=== PATIENT | female | born 1945 | race Caucasian/White ===

== ENCOUNTER 2021-04-04 06:05 | Day surgery (SDC) | payer MEDICARE, MEDICAID ==
[2021-04-04] MEDS ORDERED: KETOROLAC 0.45% OPHTH DROPS ONE (06:12)
[2021-04-04] MEDS ORDERED: PROPARACAINE 0.5% OPHTH DROPS 15 ML ONE (06:12)
[2021-04-04] MEDS ORDERED: PHENYLEPHRINE 2.5% OPHTH 2 ML DROPS ONE (06:13)
[2021-04-04] MEDS ORDERED: CYCLOPENTOLATE 1% OPHTH DROPS 2 ML ONE (06:13)
[2021-04-04] MEDS ORDERED: LACTATED RINGERS 1,000 ML IV ONE (06:30)
[2021-04-04 06:34] VITALS: BP 129/61
[2021-04-04] MEDS ORDERED: EPINEPHrine 1 MG/ML AMP ONE (07:08)
[2021-04-04] MEDS ORDERED: fentaNYL 100 MCG/2 ML VIAL ONE (07:08)
[2021-04-04] MEDS ORDERED: MIDAZOLAM 2 MG/2 ML VIAL ONE (07:08)
[2021-04-04] MEDS ORDERED: TRIAMCIN/MOXIFLOX OPHTHALMIC 0.6 ML VIAL IO ONE (07:08)
[2021-04-04] MEDS ORDERED: TIMOLOL 0.5% OPHTH DROPS ONE (07:09)
[2021-04-04] MEDS ORDERED: BRIMONIDINE 0.2% OPHTH DROPS 5 ML ONE (07:09)
[2021-04-04] MEDS ORDERED: VANCOMYCIN OPHTHALMI 8MG/0.8ML 8 MG/0.8 ML SYRINGE IO ONE (07:09)
[2021-04-04] MEDS ORDERED: BSS/LIDOCAINE/EPINEPHRINE 1 ML SYRINGE ONE (07:09)
--- NOTE | 2021-04-04 07:44 | CONSULTATION NOTE ---
Consultation Report: In for pre-op evaluation for cataract extraction. HR noted in low 30's with what appears as 2nd degree type 2 HB. Pt is asymptomatic and denies any history of SOB, passing out, dizziness other than a remote incident with covid vaccine. States she felt dizzy for a few days post injection. EKG confirms that patient is in 2nd degree type 2 block. EKG evaluated by internal medicine, confirms. Cardiology will be notified of patient status this AM. Case to be cancelled/delayed given its elective nature. This was explained to patient by anesthesia as well as surgeon.
--- NOTE | 2021-04-04 07:50 | CONSULTATION NOTE ---
Consultation Report: In to see pt for pre-op evaluation for cataract extraction. HR noted to be in low 30's, asymptomatic. Denies any hx of fainting or passing out. Remote hx of dizziness post covid vaccine injection. EKG confirms 2nd degree type 2 HB. Internal medicine also concurs. Case to be delayed given its elective nature. Cardiology will be notified this AM by internal medicine.
== END 2021-04-04 06:06 | disposition home or self-care (01) ==
LOC: SDS 06:05
PROVIDERS: ATTEND Ophthalmology
DX: Z53.9 Procedure and treatment not carried out, unspecified reason (principal)
CPT/HCPCS: 93005

== ENCOUNTER 2021-04-04 08:02 | Emergency (ER) | payer MEDICARE, MEDICAID ==
--- NOTE | 2021-04-04 08:16 | ED Physician Documentation ---
PD HPI CHEST PAIN - Stated complaint Stated Complaint: CARDIAC - History obtained from History obtained from: Patient - Additional information Additional information: 76-year-old woman with no cardiac history went for elective cataract repair today and was noted to be bradycardic with an EKG showing a 2-1 block. She has not had chest pain, dizziness, syncope, exercise intolerance. States her last EKG was several years ago. 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: Hysterectomy - Present Medications Home Medications: Ambulatory Orders Medication Instructions Recorded Confirmed Acyclovir 1 tab PO DAILY 04/04/21 04/04/21 Doxepin [SINEquan] 1 tab PO DAILY 04/04/21 04/04/21 Mirabegron [Myrbetriq] 1 tab PO DAILY 04/04/21 04/04/21 Montelukast [Singulair] 1 tab PO DAILY 04/04/21 04/04/21 Omeprazole [PriLOSEC] 1 tab PO DAILY 04/04/21 04/04/21 Simvastatin [Zocor] 1 tab PO DAILY 04/04/21 04/04/21 amLODIPine [Norvasc] 1 tab PO DAILY 04/04/21 04/04/21 - Allergies Allergies/Adverse Reactions: Allergies Allergy/AdvReac Type Severity Reaction Status Date / Time No Known Drug Allergies Allergy Verified 04/04/21 08:16 PD ED PE NORMAL - Vitals Vital signs reviewed: Yes - General General: Alert and oriented X 3, No acute distress - HEENT HEENT: PERRL, EOMI - Neck Neck: Supple, no meningeal sign, No bony TTP - Cardiac Cardiac: RRR, No murmur - Respiratory Respiratory: No respiratory distress, Clear bilaterally - Abdomen Abdomen: Non tender - Back Back: No CVA TTP, No spinal TTP - Derm Derm: Normal color, Warm and dry - Neuro Neuro: Alert and oriented X 3, Normal speech Results - Vitals Vitals: Vital Signs - 24 hr 04/04/21 04/04/21 04/04/21 08:11 08:30 09:00 Temperature 36.0 C L Heart Rate 36 L 33 L 33 L Respiratory 14 17 16 Rate Blood Pressure 138/51 H 133/58 H 120/63 O2 Saturation 99 98 97 04/04/21 09:30 Temperature 36.6 C Heart Rate 48 L Respiratory 17 Rate Blood Pressure 138/59 H O2 Saturation 97 Oxygen O2 Source Room air - EKG (time done) 0806 Rate: Rate (enter#) (34) Rhythm: NSR (with 2:1 AV block) Intervals: RBBB Ischemia: Normal ST segments. 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 Rincon at the [facility] who felt that no specific inpatient treatment was needed but does need to follow-up within a week or so. I also updated Dr. Lozada, her primary care physician by phone who agrees with the plan and will close the loop as well. Departure - Departure Disposition: 01 Home, Self Care Clinical Impression: Heart block AV second degree Condition: Good Record reviewed to determine appropriate education?: Yes Instructions: Heart Block 2nd Degree Comments: You were seen today for bradycardia, or slow heart rate related to a 2: 1 atrioventricular block. It is unclear how long this has been going on but ob viously is relatively asymptomatic. We discussed your case by phone with Dr. Rincon who is a engineering drafter in [place]. He recommended that she follow-up with Dr. Willis within the week for evaluation. She is a specialist in the electrical conduction system of the heart. Her contact information is: Viri Willis M.D. Electrophysiology [facility] [address] [place] [phone] Call today for an appointment within the week, again mention that Dr. Rincon was involved in your case and want you seen within the week.
[2021-04-04 09:21] LABS: CALCIUM 9.4 mg/dL (8.5-10.3); CREATININE 0.9 mg/dL (0.4-1.0); MAGNESIUM 2.2 mg/dL (1.7-2.8); POTASSIUM 3.8 mmol/L (3.5-5.0)
[2021-04-04 09:39] VITALS: BP 138/59
== END 2021-04-04 09:47 | disposition home or self-care (01) ==
LOC: ED 08:02
DX: I44.1 Atrioventricular block, second degree (principal); I10 Essential (primary) hypertension
CPT/HCPCS: 36415; 80048; 83735; 84443; 93005; 99283; 99284; A9270; J3490; J7120

== ENCOUNTER 2021-08-15 08:51 | Day surgery (SDC) | payer MEDICARE, MEDICAID ==
[~2021-08-15 08:51] MED LIST: BRIMONIDINE 0.2% OPHTH DROPS 5 ML ONE; BSS/LIDOCAINE/EPINEPHRINE 1 ML SYRINGE ONE; CYCLOPENTOLATE 1% OPHTH DROPS 2 ML ONE; EPINEPHrine 1 MG/ML AMP ONE; KETOROLAC 0.45% OPHTH DROPS ONE; PHENYLEPHRINE 2.5% OPHTH 2 ML DROPS ONE; PROPARACAINE 0.5% OPHTH DROPS 15 ML ONE; TIMOLOL 0.5% OPHTH DROPS ONE; TRIAMCIN/MOXIFLOX OPHTHALMIC 0.6 ML VIAL IO ONE; VANCOMYCIN OPHTHALMI 8MG/0.8ML 8 MG/0.8 ML SYRINGE IO ONE
[2021-08-15] MEDS ORDERED: LACTATED RINGERS 1,000 ML IV ONE ×2 (09:08→10:38)
--- NOTE | 2021-08-15 09:57 | ANESTHESIA ---
Pre-Anesthesia VS, & Labs - Diagnosis right senile combined cataract - Procedure right cataract extraction with intraocular lens Vital Signs: Temp Pulse Resp BP Pulse Ox 36.6 C 80 16 145/91 H 96 08/15/21 09:08 08/15/21 09:08 08/15/21 09:08 08/15/21 09:08 08/15/21 09:08 Height: 5 ft 6 in Weight (kg): 83.6 kg Body Mass Index: 29.7 BMI Classification: Overweight - NPO >8 hours - Is Patient ?: No Home Medications and Allergies Acyclovir 1 tab PO DAILY 04/04/21 Doxepin [SINEquan] 1 tab PO DAILY 04/04/21 Mirabegron [Myrbetriq] 1 tab PO DAILY 04/04/21 Montelukast [Singulair] 1 tab PO DAILY 04/04/21 Omeprazole [PriLOSEC] 1 tab PO DAILY 04/04/21 Simvastatin [Zocor] 1 tab PO DAILY 04/04/21 amLODIPine [Norvasc] 1 tab PO DAILY 04/04/21 Allergies/Adverse Reactions: Allergies Allergy/AdvReac Type Severity Reaction Status Date / Time cimetidine [From Tagamet] Allergy Rash Verified 08/15/21 09:28 Penicillins Allergy Rash Verified 08/15/21 09:27 Anes History & Medical History - Anesthetic History Anesthesia Complications: reports: No previous complications - Medical History Cardiovascular: reports: Hypertension, High cholesterol, Arrhythmia (2nd degree HB, underwent pacer a month ago) Pulmonary: reports: None Gastrointestinal: reports: Other Urinary: reports: None Musculoskeletal: reports: None Endocrine/Autoimmune: reports: None Skin: reports: None History of Cancer?: Yes (skin Ca on leg) - Surgical History General: reports: Appendectomy Cardiothoracic: reports: Pacemaker Gynecologic: reports: Hysterectomy Exam General: Alert Dental: WNL Mouth Openin Fingerbreadth Neck Mobility: Normal Mallampati classification: II Respiratory: Lungs clear Cardiovascular: Regular rate Plan Anesthesia Type: MAC Consent for Procedure(s) Verified and Reviewed: Yes Code Status: Attempt Resuscitation ASA classification: 2-Mild systemic disease Is this case an emergency?: No
[2021-08-15] MEDS ORDERED: fentaNYL 100 MCG/2 ML VIAL ONE (10:00)
[2021-08-15] MEDS ORDERED: MIDAZOLAM 2 MG/2 ML VIAL ONE (10:00)
[2021-08-15] MEDS ORDERED: TRIAMCIN/MOXIFLOX OPHTHALMIC 0.6 ML VIAL IO ONE ×2 (10:21→10:23)
[2021-08-15] MEDS ORDERED: BRIMONIDINE 0.2% OPHTH DROPS 5 ML OPTH ONE (10:22)
[2021-08-15] MEDS ORDERED: EPINEPHrine 1 MG/ML AMP IR ONE (10:22)
[2021-08-15] MEDS ORDERED: PROPARACAINE 0.5% OPHTH DROPS 15 ML EACHEYE ONE (10:23)
[2021-08-15] MEDS ORDERED: BSS/LIDOCAINE/EPINEPHRINE 1 ML SYRINGE IO ONE (10:23)
[2021-08-15] MEDS ORDERED: VANCOMYCIN OPHTHALMI 8MG/0.8ML 8 MG/0.8 ML SYRINGE IO ONE (10:23)
[2021-08-15] MEDS ORDERED: TIMOLOL 0.5% OPHTH DROPS OPTH ONE (10:23)
--- NOTE | 2021-08-15 10:44 | OPERATIVE REPORT ---
Operative Report - Other Other Information/Narrative: Date of Surgery: 08/15/21 Preop Dx: Visually significant cataract right eye. This was the first cataract surgery. Postop Dx: Same Procedure: Phacoemulsification with posterior chamber intraocular lens implant right eye Surgeon: Dr. Hermilo Lerner Anesthesia: Monitored anesthesia care Complications: None Operative Indications: This is a 76-year-old F with progressive vision loss in the right eye due to 4+ nuclear sclerotic and 2+ posterior subcapsular cataract. Best corrected visual acuity was 20/60 with glare to hand motion vision in the right eye. Indications for surgery were: - Overall decrease in vision - Difficulty seeing words on a computer screen - Difficulty reading - Difficulty seeing words, closed captions, or game scores on TV - Difficulty seeing street signs The patient was consented at length concerning the risks and benefits of cataract surgery after which the patient expressed a desire to proceed with surgery. Operative Procedure: The patient was taken into OR#3 and placed under monitored anesthesia care. A surgical time-out was conducted confirming correct patient, correct procedure, and correct surgical site. The patient was given topical anesthesia and then prepped and draped in the usual sterile fashion. The eye was entered at the 6 and 3 oclock positions. Intracameral Shugarcaine was injected into the anterior chamber followed by a dispersive viscoelastic. A continuous-tear curvilinear capsulorhexis was performed. The nucleus was hydrodissected and phacoemulsified. The cortex was evacuated using automated infusion and aspiration. A cohesive viscoelastic was injected into the capsular bag and a 22.5 diopter intraocular lens was inserted into the bag. Infusion and aspiration were used to evacuate the viscoelastic materials from the eye. The wounds were hydrated and the eye inflated to physiologic pressure using balanced salt solution. Approximately 0.25ml of a mixture of triamcinolone and moxifloxacin was injected trans-sclerally into the vitreous in the inferotemporal quadrant using a 30 gauge cannula. An additional 0.55ml of a mixture of triamcinolone, moxifloxacin, and vancomycin was injected subconjunctivally in the superior quadrant for infection and inflammation prophylaxis. Wound integrity was checked with Weck-Mei sponges. The patient was taken from the operating room in good condition and given post-op instructions.
--- NOTE | 2021-08-15 10:45 | ANESTHESIA POST OP EVALUATION ---
Anesthesia Post Eval - Post Anesthesia Eval Vitals: Last Vital Signs Temp 36.8 C 08/15/21 10:38 Pulse 68 08/15/21 10:38 Resp 14 08/15/21 10:38 BP 111/53 L 08/15/21 10:38 Pulse Ox 95 08/15/21 10:38 CV Function Including HR & BP: Stable Pain Control: Satisfactory Nausea & Vomiting: Negative Mental Status: Baseline Respiratory Status: Airway Patent Hydration Status: Satisfactory Anesthesia Complications: None
[2021-08-15 10:47] VITALS: BP 101/48
== END 2021-08-15 08:52 | disposition home or self-care (01) ==
LOC: SDS 08:51
PROVIDERS: ATTEND Ophthalmology
DX: H25.811 Combined forms of age-related cataract, right eye (principal); I10 Essential (primary) hypertension; E78.00 Pure hypercholesterolemia, unspecified; J45.909 Unspecified asthma, uncomplicated; F41.9 Anxiety disorder, unspecified; F32.9 Major depressive disorder, single episode, unspecified; Z95.0 Presence of cardiac pacemaker; Z79.899 Other long term (current) drug therapy
CPT/HCPCS: 66984; A9270; J3490; J7120

== ENCOUNTER 2021-11-07 08:01 | Day surgery (SDC) | payer MEDICARE, MEDICAID ==
[~2021-11-07 08:01] MED LIST changes: -BRIMONIDINE 0.2% OPHTH DROPS 5 ML ONE; -BSS/LIDOCAINE/EPINEPHRINE 1 ML SYRINGE ONE; -EPINEPHrine 1 MG/ML AMP ONE; -TIMOLOL 0.5% OPHTH DROPS ONE; -TRIAMCIN/MOXIFLOX OPHTHALMIC 0.6 ML VIAL IO ONE; -VANCOMYCIN OPHTHALMI 8MG/0.8ML 8 MG/0.8 ML SYRINGE IO ONE
--- NOTE | 2021-11-07 09:16 | ANESTHESIA ---
Pre-Anesthesia VS, & Labs - Diagnosis L senile combined cataract - Procedure L extraction cataract w/IOL Vital Signs: Temp Pulse Resp BP Pulse Ox 36.9 C 76 19 145/99 H 96 11/07/21 08:08 11/07/21 08:08 11/07/21 08:08 11/07/21 08:08 11/07/21 08:08 Height: 5 ft 6 in Weight (kg): 80.9 kg Body Mass Index: 28.8 BMI Classification: Overweight - NPO >8 hours - Is Patient ?: No - Lab Results Lab results reviewed: Yes Home Medications and Allergies Home Medications: Ambulatory Orders Alprazolam [Xanax] 0.25 mg PO BID 11/06/21 Brexpiprazole [Rexulti] 4 mg PO DAILY 11/06/21 Prazosin [Minipress] 4 mg PO BID 11/06/21 buPROPion [Wellbutrin Sr] 150 mg PO BID 11/06/21 Acyclovir 1 tab PO DAILY 04/04/21 Doxepin [SINEquan] 1 tab PO DAILY 04/04/21 Mirabegron [Myrbetriq] 1 tab PO DAILY 04/04/21 Montelukast [Singulair] 1 tab PO DAILY 04/04/21 Omeprazole [PriLOSEC] 1 tab PO DAILY 04/04/21 Simvastatin [Zocor] 1 tab PO DAILY 04/04/21 amLODIPine [Norvasc] 1 tab PO DAILY 04/04/21 Alprazolam [Xanax] 0.25 mg PO BID 11/06/21 Brexpiprazole [Rexulti] 4 mg PO DAILY 11/06/21 Prazosin [Minipress] 4 mg PO BID 11/06/21 buPROPion [Wellbutrin Sr] 150 mg PO BID 11/06/21 Allergies/Adverse Reactions: Allergies Allergy/AdvReac Type Severity Reaction Status Date / Time c[facility]idine [[facility]] Allergy Rash Verified 08/15/21 09:28 Penicillins Allergy Rash Verified 08/15/21 09:27 Anes History & Medical History - Anesthetic History Anesthesia Complications: reports: No previous complications Family history of Anesthesia Complications: Denies Family history of Malignant Hyperthermia: Denies - Medical History Cardiovascular: reports: Hypertension, High cholesterol, Arrhythmia, Other (pacer for 2nd degree type 2 block) Pulmonary: reports: None Gastrointestinal: reports: Other Urinary: reports: None Musculoskeletal: reports: None Endocrine/Autoimmune: reports: None Skin: reports: None - Surgical History General: reports: Appendectomy Eyes Ears Nose Throat (EENT): reports: Cataracts Cardiothoracic: reports: Pacemaker Gynecologic: reports: Hysterectomy Exam General: Alert, Oriented x3, Cooperative Dental: WNL Mouth Openin Fingerbreadth Neck Mobility: Normal Mallampati classification: II Respiratory: Lungs clear, Normal breath sounds, No respiratory distress Neurological: Normal speech Mental/Cognitive Status: Alert/Oriented X3, Normal for patient Cognitive Status: Within normal limits Plan Anesthesia Type: MAC Consent for Procedure(s) Verified and Reviewed: Yes Code Status: Attempt Resuscitation ASA classification: 3-Severe systemic disease Is this case an emergency?: No
[2021-11-07] MEDS ORDERED: MIDAZOLAM 2 MG/2 ML VIAL ONE ×2 (09:33→09:54)
[2021-11-07] MEDS ORDERED: TIMOLOL 0.5% OPHTH DROPS OPTH ONE (09:57)
[2021-11-07] MEDS ORDERED: EPINEPHrine 1 MG/ML AMP IR ONE (09:57)
[2021-11-07] MEDS ORDERED: BRIMONIDINE 0.2% OPHTH DROPS 5 ML OPTH ONE (09:57)
[2021-11-07] MEDS ORDERED: BSS/LIDOCAINE/EPINEPHRINE 1 ML SYRINGE IO ONE (09:57)
[2021-11-07] MEDS ORDERED: VANCOMYCIN OPHTHALMI 8MG/0.8ML 8 MG/0.8 ML SYRINGE IO ONE (09:58)
[2021-11-07] MEDS ORDERED: PROPARACAINE 0.5% OPHTH DROPS 15 ML EACHEYE ONE (09:58)
[2021-11-07] MEDS ORDERED: TRIAMCIN/MOXIFLOX OPHTHALMIC 0.6 ML VIAL IO ONE ×2 (09:58→13:40)
[2021-11-07] MEDS ORDERED: LACTATED RINGERS 1,000 ML IV ONE ×2 (10:14)
[2021-11-07 10:34] VITALS: BP 149/63
--- NOTE | 2021-11-07 11:22 | OPERATIVE REPORT ---
Operative Report - Other Other Information/Narrative: Date of Surgery: 11/07/21 Preop Dx: Visually significant cataract left eye. Cataract surgery was performed in the right eye on . Postop Dx: Same Procedure: Phacoemulsification with posterior chamber intraocular lens implant left eye Surgeon: Dr. Hermilo Lerner Anesthesia: Monitored anesthesia care Complications: None Operative Indications: This is a 76-year-old F with progressive vision loss in the left eye due to 3-4+ nuclear sclerotic and 1+ posterior subcapsular cataract. Best corrected visual acuity was 20/25 with glare to hand motion vision in the left eye. Indications for surgery were: - Overall decrease in vision - Difficulty reading - Difficulty seeing words, closed captions, or game scores on TV - Difficulty with glare or bright lights in any situation The patient was consented at length concerning the risks and benefits of cataract surgery after which the patient expressed a desire to proceed with surgery. Operative Procedure: The patient was taken into OR#3 and placed under monitored anesthesia care. A surgical time-out was conducted confirming correct patient, correct procedure, and correct surgical site. The patient was given topical anesthesia and then prepped and draped in the usual sterile fashion. The eye was entered at the 6 and 3 oclock positions. Intracameral Shugarcaine was injected into the anterior chamber followed by a dispersive viscoelastic. A continuous-tear curvilinear capsulorhexis was performed. The nucleus was hydrodissected and phacoemulsified. The cortex was evacuated using automated infusion and aspiration. A cohesive viscoelastic was injected into the capsular bag and a 21.0 diopter intraocular lens was inserted into the bag. Infusion and aspiration were used to evacuate the viscoelastic materials from the eye. The wounds were hydrated and the eye inflated to physiologic pressure using balanced salt solution. Approximately 0.25ml of a mixture of triamcinolone and moxifloxacin was injected trans-sclerally into the vitreous in the inferotemporal quadrant using a 30 gauge cannula. An additional 0.55ml of a mixture of triamcinolone, moxifloxacin, and vancomycin was injected subconjunctivally in the superior quadrant for infection and inflammation prophylaxis. Wound integrity was checked with Weck-Mei sponges. The patient was taken from the operating room in good condition and given post-op instructions.
--- NOTE | 2021-11-07 11:40 | ANESTHESIA POST OP EVALUATION ---
Anesthesia Post Eval - Post Anesthesia Eval Vitals: Last Vital Signs Temp 36.7 C 11/07/21 10:32 Pulse 72 11/07/21 10:32 Resp 12 11/07/21 10:32 BP 149/63 H 11/07/21 10:32 Pulse Ox 98 11/07/21 10:32 CV Function Including HR & BP: Stable Pain Control: Satisfactory Nausea & Vomiting: Negative Mental Status: Baseline Respiratory Status: Airway Patent Hydration Status: Satisfactory Anesthesia Complications: None
[2021-11-07] MEDS ORDERED: TIMOLOL 0.5% OPHTH DROPS ONE (13:40)
[2021-11-07] MEDS ORDERED: BRIMONIDINE 0.2% OPHTH DROPS 5 ML ONE (13:40)
[2021-11-07] MEDS ORDERED: BSS/LIDOCAINE/EPINEPHRINE 1 ML VIAL ONE (13:40)
== END 2021-11-07 08:02 | disposition home or self-care (01) ==
LOC: SDS 08:01
PROVIDERS: ATTEND Ophthalmology
DX: H25.812 Combined forms of age-related cataract, left eye (principal); I49.9 Cardiac arrhythmia, unspecified; Z98.41 Cataract extraction status, right eye; Z95.0 Presence of cardiac pacemaker
CPT/HCPCS: 66984; A9270; J3490; J7120

== ENCOUNTER 2022-02-05 05:37 | Emergency (ER) | payer MEDICARE, MEDICAID ==
[2022-02-05] MEDS ORDERED: MECLIZINE 12.5 MG TABLET PO STA (06:28)
[2022-02-05 06:38] LABS: BASOPHILS % (AUTO) 0.6 %; EOSINOPHILS # (AUTO) 0.2 10^3/uL (0.0-0.7); EOSINOPHILS % (AUTO) 2.6 %; HCT - HEMATOCRIT 38.4 % (37.0-47.0); HGB - HEMOGLOBIN 12.7 g/dL (12.0-16.0); LYMPHOCYTES # (AUTO) 2.4 10^3/uL (1.5-3.5); LYMPHOCYTES % (AUTO) 38.7 %; MEAN CORPUSCULAR HEMOGLOBIN 29.7 pg (27.0-31.0); MEAN CORPUSCULAR HGB CONC 33.1 g/dL (32.0-36.0); MEAN CORPUSCULAR VOLUME 89.7 fL (81.0-99.0); MEAN PLATELET VOLUME 10.2 fL (7.9-10.8); MONOCYTES # (AUTO) 0.6 10^3/uL (0.0-1.0); MONOCYTES % (AUTO) 10.3 %; NEUTROPHILS % (AUTO) 47.5 %; PLT - PLATELET COUNT 219 10^3/uL (130-450); RED BLOOD COUNT 4.28 10^6/uL (4.20-5.40); RED CELL DISTRIBUTION WIDTH 12.8 % (12.0-15.0); WHITE BLOOD COUNT 6.2 x10^3/uL (4.8-10.8)
[2022-02-05 06:44] LABS: ALBUMIN 3.7 g/dL (3.2-5.5); ALBUMIN/GLOBULIN RATIO 1.1 (1.0-2.2); BILIRUBIN,TOTAL 0.4 mg/dL (0.2-1.0); CALCIUM 8.9 mg/dL (8.5-10.3); CREATININE 0.7 mg/dL (0.4-1.0); POTASSIUM 3.5 mmol/L (3.5-5.0); TOTAL PROTEIN 7.1 g/dL (6.7-8.2)
[2022-02-05 07:22] LABS: BILIRUBIN,URINE NEGATIVE (NEGATIVE); GLUCOSE, URINE (UA) >=1000 mg/dL (NEGATIVE); KETONES,URINE (UA) 15 mg/dL (NEGATIVE); LEUKOCYTE ESTERASE, URINE NEGATIVE (NEGATIVE); NITRITE,URINE NEGATIVE (NEGATIVE); OCCULT BLOOD,URINE NEGATIVE (NEGATIVE); PROTEIN,URINE NEGATIVE (NEGATIVE); UROBILINOGEN,URINE 0.2 (NORMAL) E.U./dL (NORMAL)
[2022-02-05 07:26] LABS: CLARITY,URINE CLEAR (CLEAR)
--- NOTE | 2022-02-05 07:27 | CT Report ---
PROCEDURE: HEAD WO INDICATIONS: head injury, dizziness TECHNIQUE: Noncontrast 4.5 mm thick angled axial sections acquired from the foramen magnum to the vertex. For r adiation dose reduction, the following was used: automated exposure control, adjustment of mA and/or kV according to patient size. COMPARISON: None FINDINGS: Image quality: Excellent. CSF spaces: Basal cisterns are patent. No extra-axial fluid collections. The ventricles are symmet cintia in size and shape. Brain: No intracranial bleeds or masses. There is cerebral volume loss for age, with resultant vent ricular and sulcal prominence. There are periventricular and deep white matter chronic small vessel ischemic changes. There is intracranial internal carotid artery atherosclerosis. Skull and face: Calvarium and visualized facial bones appear intact, without suspicious lesions. Sinuses: Visualized sinuses and mastoids are clear. IMPRESSION: No acute intracranial disease process. Reviewed by: Jessica Del Valle MD, PhD on 02/05/2022 7:25 AM PDT Approved by: Jessica Del Valle MD, PhD on 02/05/2022 7:25 AM PDT Station ID: [id number]
--- NOTE | 2022-02-05 07:36 | ED Physician Documentation ---
History of Present Illness - Stated complaint Stated Complaint: DIZZINESS/GLF -4 DAYS - Chief complaint Chief Complaint: General - History obtained from History obtained from: Patient - History of Present Illness Timing: How many days ago (4) Pain level max: 0 Pain level now: 0 Improved by: lying still Worsened by: some component of worsening of dizziness with movement of head (but not reliably , and some episodes of dizziness occur even at rest) - Additonal information Additional information: patient fell 4 days ago at home, lost her balance and fell forward , struck her head against a sink. She denies LOC, denies KULKARNI. She has had episodic dizziness since the injury, with episodes often triggered by moving her head/turning head, although some episodes occur when lying still. Episodes last a few seconds up to 2-3 minutes. Patient is not on any blood-thinning medications Review of Systems Constitutional: reports: Reviewed and negative Eyes: reports: Reviewed and negative Ears: reports: Reviewed and negative Cardiac: reports: Reviewed and negative Respiratory: reports: Reviewed and negative GI: reports: Reviewed and negative Musculoskeletal: reports: Reviewed and negative Neurologic: reports: Head injury. 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: Hysterectomy Cardiovascular: Pacemaker HEENT: Cataracts - Present Medications Home Medications: Ambulatory Orders Medication Instructions Recorded Confirmed Acyclovir 1 tab PO DAILY 04/04/21 02/05/22 Doxepin [SINEquan] 1 tab PO DAILY 04/04/21 02/05/22 Mirabegron [Myrbetriq] 1 tab PO DAILY 04/04/21 02/05/22 Montelukast [Singulair] 1 tab PO DAILY 04/04/21 02/05/22 Omeprazole [PriLOSEC] 1 tab PO DAILY 04/04/21 02/05/22 Simvastatin [Zocor] 1 tab PO DAILY 04/04/21 02/05/22 amLODIPine [Norvasc] 5 mg PO DAILY 04/04/21 02/05/22 Alprazolam [Xanax] 0.25 mg PO BID 11/06/21 02/05/22 Prazosin [Minipress] 5 mg PO BID 11/06/21 02/05/22 buPROPion [Wellbutrin Sr] 150 mg PO DAILY 11/06/21 02/05/22 OLANZapine [Zyprexa] 5 mg PO DAILY 02/05/22 02/05/22 - Allergies Allergies/Adverse Reactions: Allergies Allergy/AdvReac Type Severity Reaction Status Date / Time cimetidine [From Tagamet] Allergy Rash Verified 02/05/22 06:01 Penicillins Allergy Rash Verified 02/05/22 06:01 - Social History Does the pt smoke?: No Smoking Status: Never smoker Does the pt drink ETOH?: No Does the pt have substance abuse?: No - Immunizations Immunizations are current?: No Immunizations: TDAP >10years/unknown - POLST Patient has POLST: No PD ED PE NORMAL - Vitals Vital signs reviewed: Yes - General General: Alert and oriented X 3, No acute distress, Well developed/nourished - HEENT HEENT: Atraumatic, PERRL, EOMI, Moist mucous membranes - Neck Neck: No bony TTP - Cardiac Cardiac: RRR, No murmur - Respiratory Respiratory: No respiratory distress, Clear bilaterally - Abdomen Abdomen: Soft, Non tender - Derm Derm: Normal color, Warm and dry - Extremities Extremities: No edema - Neuro Neuro: Alert and oriented X 3, drywall taper 2-12 intact, No motor deficit, No sensory deficit, Normal speech Eye Opening: Spontaneous Motor: Obeys Commands Verbal: Oriented GCS Score: 15 Results - Vitals Vitals: Vital Signs - 24 hr 02/05/22 02/05/22 02/05/22 05:56 07:15 09:00 Temperature 36.0 C L Heart Rate 82 66 71 Respiratory 17 18 14 Rate Blood Pressure 133/83 H 151/64 H 129/65 O2 Saturation 95 97 100 Oxygen O2 Source Room air - EKG (time done) No standard instances Rate: Rate (enter#) (70) Rhythm: NSR [place]: LAD Intervals: Normal CT QRS: Normal Ischemia: Normal ST segments - Labs Labs: Laboratory Tests 02/05/22 02/05/22 02/05/22 06:20 06:20 06:20 WBC 6.2 RBC 4.28 Hgb 12.7 Hct 38.4 MCV 89.7 MCH 29.7 MCHC 33.1 RDW 12.8 Plt Count 219 MPV 10.2 Neut # (Auto) 3.0 Lymph # (Auto) 2.4 [place] # (Auto) 0.6 Eos # (Auto) 0.2 Baso # (Auto) 0.0 Absolute Nucleated RBC 0.00 Nucleated RBC % 0.0 Sodium 138 Potassium 3.5 Chloride 105 Carbon Dioxide 23 Anion Gap 10.0 BUN 10 Creatinine 0.7 Estimated GFR (MDRD) 81 L Glucose 351 H POC Whole Bld Glucose Calcium 8.9 Total Bilirubin 0.4 AST 31 ALT 24 Alkaline Phosphatase 157 H Troponin I High Sens 4.8 Total Protein 7.1 Albumin 3.7 Globulin 3.4 Albumin/Globulin Ratio 1.1 Lipase 32 Urine Color Urine Clarity Urine pH Ur Specific [place] Urine Protein Urine Glucose (UA) Urine Ketones Urine Occult Blood Urine Nitrite Urine Bilirubin Urine Urobilinogen Ur Leukocyte Esterase Ur Microscopic Review Urine Culture Comments Serum Ketones 02/05/22 02/05/22 02/05/22 06:20 07:16 09:15 WBC RBC Hgb Hct MCV MCH MCHC RDW Plt Count MPV Neut # (Auto) Lymph # (Auto) [place] # (Auto) Eos # (Auto) Baso # (Auto) Absolute Nucleated RBC Nucleated RBC % Sodium Potassium Chloride Carbon Dioxide Anion Gap BUN Creatinine Estimated GFR (MDRD) Glucose POC Whole Bld Glucose 317 H Calcium Total Bilirubin AST ALT Alkaline Phosphatase Troponin I High Sens Total Protein Albumin Globulin Albumin/Globulin Ratio Lipase Urine Color YELLOW Urine Clarity CLEAR Urine pH 6.0 Ur Specific [place] 1.025 Urine Protein NEGATIVE Urine Glucose (UA) >=1000 H Urine Ketones 15 H Urine Occult Blood NEGATIVE Urine Nitrite NEGATIVE Urine Bilirubin NEGATIVE Urine Urobilinogen 0.2 (NORMAL) Ur Leukocyte Esterase NEGATIVE Ur Microscopic Review NOT INDICATED Urine Culture Comments NOT INDICATED Serum Ketones NEGATIVE - Rads (name of study) CTH Radiology: Prelim report reviewed, See rad report cxr Radiology: Prelim report reviewed, See rad report PD MEDICAL DECISION MAKING - ED course Complexity details: reviewed results, re-evaluated patient, considered differential, d/w patient ED course: presents with episodic dizziness since head injury 4 days ago. No concerning findings on CTH, CXR. Blood tests are reassuring except hyperglycemia noted; patient says she is not diabetic, has never had DM diagnosis. There is only one previous serum glucose on [facility] records (162 in March 2021). She is given meclizine in ED and reports some improvement with the dizziness. Care of patient turned over to Dr. Hidalgo at end of my shift pending infusion of 1 liter NS and serum ketone check. Hgb A1C also ordered.
[2022-02-05] MEDS ORDERED: SODIUM CHLORIDE 0.9% 1,000 ML IV STA (07:52)
--- NOTE | 2022-02-05 09:07 | XRAY Report ---
PROCEDURE: Chest 2 View X-Ray INDICATIONS: near-syncope TECHNIQUE: 2 view(s) of the chest. COMPARISON: None. FINDINGS: Surgical changes and devices: Left chest wall cardiac pacer. Lungs and pleura: No pleural effusions or pneumothorax. Bilateral interstitial prominence. Mediastinum: Mediastinal contours are normal. Heart size is normal. Bones and chest wall: No suspicious bony abnormalities. Soft tissues appear unremarkable. IMPRESSION: Bilateral lung interstitial prominence which should represent chronic lung disease, pulm onary edema or atypical pneumonia. Reviewed by: Jessica Del Valle MD, PhD on 02/05/2022 9:06 AM PDT Approved by: Jessica Del Valle MD, PhD on 02/05/2022 9:06 AM PDT Station ID: [id number]
--- NOTE | 2022-02-05 10:03 | ED Physician Documentation ---
ED Addendum - Addendum Addendum: 02/05/22 11:50 Patient received a signout from off going physician, please see their d ocumentation for further detail. Patient is evaluated independently at bedside. Did report history of recent Episode of near syncope with closed head injury that occurred 4 days ago as well as intermittent episodes of dizziness. Reported that her symptoms were much improved here in the emergency department. Reviewed all of her lab work which did demonstrate a nonspecific hyperglycemia without history of diabetes. She does have an A1c that is pending at this time. She does not appear to be symptomatic from her mild elevation in blood sugar. The remainder of her labs Were within normal limits. I did have a repeat EKG drawn which did demonstrate some improvement in the previously identified T wave inversions in her earlier EKG at 03 02. I asked that her pacer be interrogated here in the emergency department and this was reviewed and there were no arrhythmias or abnormal events appreciated when I discussed it with her pacer team at [facility]. Additionally I consulted on her care with the cardiology team at [facility] who do not believe that her symptoms are cardiac in origin. I did obtain orthostatic vital signs which were within normal limits. She was monitored in the emergency department for several hours and passed an ambulatory trial at that time. At this time I will discharge with a short course of meclizine for use at home as well as with a walker with i nstructions in its use in order to decrease risk for future falls. She was encouraged to follow-up carefully with both her primary care doctor concerning her episodes of dizziness, as well as her elevated blood sugar as well as with her cardiology team. Otherwise clear return precautions and follow-up instructions were given prior to discharge.
[2022-02-05 11:42] LABS: ESTIMATED AVERAGE GLUCOSE 326 mg/dL (70-100)
[2022-02-05 11:46] VITALS: BP 152/65
== END 2022-02-05 11:59 | disposition home or self-care (01) ==
LOC: ED 05:37
DX: S09.90XA Unspecified injury of head, initial encounter (principal); W18.30XA Fall on same level, unspecified, initial encounter; Y92.009 Unspecified place in unspecified non-institutional (private) residence as the place of occurrence of the external cause; I10 Essential (primary) hypertension
CPT/HCPCS: 36415; 70450; 71046; 80053; 81003; 82009; 83036; 83690; 84484; 85025; 93005; 96360; 99284; A9270; 81001; 87086

== ENCOUNTER 2023-02-18 16:35 | Outpatient (CLI) | payer OTHER, MEDICARE | END 2023-02-18 16:36 | disposition EMS.NT | LOC: EMS 16:35 | DX: Z04.1 Encounter for examination and observation following transport accident (principal) ==

== ENCOUNTER 2023-02-24 14:28 | Emergency (ER) | payer MEDICARE ==
--- NOTE | 2023-02-24 15:27 | ED Physician Documentation ---
History of Present Illness - Stated complaint Stated Complaint: HEAD/NECK PX - Chief complaint Chief Complaint: Trauma Hd/Nk - Additonal information Additional information: 78-year-old female presents to the emergency department for evaluation of headache, neck pain and upper shoulder/back pain. She reports that she was standing in her shower when her left leg simply gave out and she fell backwards striking her head on the faucet. There was no loss of consciousness. She is not anticoagulated. She has felt dizzy with a headache since the fall. She does have a history of a pacer in place. She denies any chest pain or shortness of air or any presyncopal symptoms prior to the event. After the fall she states she felt like her heart was racing. Review of Systems Constitutional: denies: Fever, Chills Cardiac: reports: Palpitations. denies: Chest pain / pressure, Pedal edema, Calf pain Respiratory: reports: Reviewed and negative GI: reports: Reviewed and negative : reports: Reviewed and negative Neurologic: reports: Headache. denies: Generalized weakness, Focal weakness, Numbness, Syncope, Seizure, Confused, Head injury, LOC Psychiatric: reports: Reviewed and negative Endocrine: reports: Reviewed and negative PD PAST MEDICAL HISTORY - Past Medical History Cardiovascular: Hypertension, High cholesterol, Arrhythmia, Other Respiratory: None Neuro: None Endocrine/Autoimmune: None GI: Other EXTENSION SPECIALIST: None : None HEENT: None Psych: Depression, Anxiety Musculoskeletal: None Derm: None - Past Surgical History Past Surgical History: Yes General: Appendectomy /EXTENSION SPECIALIST: Hysterectomy Cardiovascular: Pacemaker HEENT: Cataracts - Present Medications Home Medications: Ambulatory Orders Medication Instructions Recorded Confirmed Acyclovir 400 mg PO DAILY 04/04/21 02/24/23 Doxepin [SINEquan] 10 mg PO DAILY 04/04/21 02/24/23 Montelukast [Singulair] 10 mg PO DAILY 04/04/21 02/24/23 Omeprazole [PriLOSEC] 20 mg PO DAILY 04/04/21 02/24/23 Simvastatin [Zocor] 20 mg PO DAILY 04/04/21 02/24/23 amLODIPine [Norvasc] 5 mg PO DAILY 04/04/21 02/24/23 Alprazolam [Xanax] 0.25 mg PO BID 11/06/21 02/24/23 Cariprazine HCl [Vraylar] 1.5 mg ORAL DAILY 02/24/23 02/24/23 Deutetrabenazine [Austedo] 14 mg ORAL BID 02/24/23 02/24/23 Prazosin [Minipress] 5 mg PO BID 02/24/23 02/24/23 traZODone [Desyrel] 100 mg PO HS 02/24/23 02/24/23 - Allergies Allergies/Adverse Reactions: Allergies Allergy/AdvReac Type Severity Reaction Status Date / Time cimetidine [From Tagamet] Allergy Rash Verified 02/24/23 14:51 Penicillins Allergy Rash Verified 02/24/23 14:51 - Social History Does the pt smoke?: No Smoking Status: Never smoker Does the pt drink ETOH?: No Does the pt have substance abuse?: No - Immunizations Immunizations are current?: No Immunizations: TDAP >10years/unknown - POLST Patient has POLST: No PD ED PE NORMAL - General General: Alert and oriented X 3, No acute distress, Well developed/nourished - HEENT HEENT: Atraumatic, EOMI, Ears normal, Other (Negative for raccoon eyes, abraham sign, hemotympanums) - Neck Neck: Supple, no meningeal sign, No adenopathy, Other (No midline cervical spinous tenderness elicited. Full range of motion of the neck in all planes) - Cardiac Cardiac: RRR, No murmur, Strong equal pulses, Other (Paced ECG rhythm.) - Respiratory Respiratory: No respiratory distress, Clear bilaterally - Abdomen Abdomen: Normal bowel sounds, Soft, Non tender, Non distended - Back Back: No CVA TTP - Derm Derm: Normal color, Warm and dry, No rash - Extremities Extremities: No deformity - Neuro Neuro: Alert and oriented X 3, dynamo tender 2-12 intact Eye Opening: Spontaneous Motor: Obeys Commands Verbal: Oriented GCS Score: 15 Results - Vitals Vitals: Vital Signs - 24 hr 02/24/23 14:52 Temperature 36.4 C L Heart Rate 96 Respiratory 20 Rate Blood Pressure 153/58 H O2 Saturation 96 Oxygen O2 Source Room air - EKG (time done) 1523 EKG releavant findings:: EKG personally interpreted by author of this note. Relevant findings are: Rate: Rate (enter#) (78) Rhythm: NSR [place]: Anterior hemiblock Intervals: RBBB QRS: Normal Ischemia: Normal ST segments Compare to prior EKG: Unchanged from prior EKG Computer interpretation: Agree with computer - Labs Labs: Laboratory Tests 02/24/23 02/24/23 02/24/23 15:40 15:40 15:40 WBC 10.2 RBC 4.73 Hgb 14.1 Hct 42.4 MCV 89.6 MCH 29.8 MCHC 33.3 RDW 12.5 Plt Count 212 MPV 10.1 Neut # (Auto) 7.8 H Lymph # (Auto) 1.7 Sharp # (Auto) 0.6 Eos # (Auto) 0.1 Baso # (Auto) 0.0 Absolute Nucleated RBC 0.00 Nucleated RBC % 0.0 Sodium 143 Potassium 3.8 Chloride 107 Carbon Dioxide 24 Anion Gap 12.0 BUN 13 Creatinine 1.0 Estimated GFR (MDRD) 53 L Glucose 164 H Calcium 9.1 Total Bilirubin 0.8 AST 18 ALT 15 Alkaline Phosphatase 105 Troponin I High Sens 4.1 Total Protein 7.5 Albumin 3.9 Globulin 3.6 Albumin/Globulin Ratio 1.1 Lipase 24 - Rads (name of study) cervical CT Relevant Findings:: Final report received (No acute cervical spine fracture or subluxation) CT head Relevant Findings:: Final report received (No acute intracranial abnormality) chest 2v xr Relevant Findings:: EMP independent interpretation of test (No acute cardiopulmonary abnormality) PD Medical Decision Making - ED course Complexity details: reviewed results, re-evaluated patient, d/w patient ED course: 78-year-old female who has a history of diabetes as well as a pacemaker in place presents to the emergency department for evaluation after a fall in the shower today. She states she felt like her left leg gave out on her she fell backwards striking her head on the faucet. There was no loss of consciousness. She is not anticoagulated. She was driven to the emergency department. On presentation she is alert and well-appearing. No focal neurodeficits. She does endorse a headache and some mild upper neck pain and shoulder pain. Patient's pacer was interrogated and in the results there do not appear to have been any triggers, high ventricular rates or other worrisome episodes since it was last evaluated in October 2022. We did obtain a CBC, electrolytes and a troponin which were per my interpretation without acute worrisome findings. Patient does tell us that she was recently diagnosed as being diabetic and was started on Trulicity. She does have a mild hyperglycemia. Today her EKG was without ischemic findings. She does have a paced rhythm. Unchanged from recent EKG. Clinically patient does not appear to have symptoms or history suggesting ACS A CT of the head and cervical spine was without acute traumatic injuries. 2 view chest x-ray was without findings to suggest rib fracture or pneumothorax. I am at this time patient is stable for discharge home. We discussed the usual emergent return precautions for worsening symptoms. Departure - Departure Disposition: Home, Self Care Clinical Impression: Fall in shower, History of pacemaker Headache Qualifiers: Headache type: unspecified Headache chronicity pattern: acute headache Intractability: not intractable Qualified Code(s): R51.9 - Headache, unspecified Condition: Stable Record reviewed to determine appropriate education?: Yes Comments: Sommer was seen today in the emergency department because your leg gave out in the shower and you fell backwards striking her head on the faucet handles. You had reported to us that you felt your heart was racing after the fall. We did interrogate your pacemaker today and found that there were no malfunctions or rapid firings of the pacer. With this means that appears to have been acting normally. Your battery has about 10 years of life left on it. We did do a CT of your head and neck without any findings of trauma or injury seen. Your chest x-ray was also normal. We did check your CBC and electrolytes and those were also without worrisome findings as a cause for your fall today. I do recommend that you take Tylenol 500 mg with food 2-3 times a day or alternate with ibuprofen 600 mg also 2-3 times a day for any body aches and discomfort. Important you discuss this ED visit with your primary care doctor. If you develop any slurred speech, have sudden severe headache, uncontrolled vomiting or any fainting episodes or develop chest pain you should return immediately to the ER for repeat evaluation NIHSS - Time Time: 15:25 - Level of Consciousness Level of consciousness: (0) Alert, Keenly responsive LOC Questions: (0) Answers both Q's correct LOC Commands: (0) Performs both correctly - Gaze Best Gaze: (0) Normal - Visual Visual: (0) No loss - Facial Palsy Facial Palsy: (0) Normal, symmetrical movement - Motor Arms (both separate) Motor Arm (right): (0) No drift Motor Arm (left): (0) No drift - Motor Legs (both separate) Motor Leg (right): (0) No drift Motor Leg (left): (0) No drift - Limb Ataxia Limb Ataxia: (0) Absent - Sensory Sensory: (0) Normal - Best Language Best Language: (0) No aphasia - Dysarthria Dysarthria: (0) Normal - Extinction and Inattention (formally neg Extinction and inattention: (0) No abnormality - Total Score/Results Total Score/Result: 0
[2023-02-24 15:47] LABS: BASOPHILS % (AUTO) 0.3 %; EOSINOPHILS # (AUTO) 0.1 10^3/uL (0.0-0.7); EOSINOPHILS % (AUTO) 0.7 %; HCT - HEMATOCRIT 42.4 % (37.0-47.0); HGB - HEMOGLOBIN 14.1 g/dL (12.0-16.0); LYMPHOCYTES # (AUTO) 1.7 10^3/uL (1.5-3.5); LYMPHOCYTES % (AUTO) 16.6 %; MEAN CORPUSCULAR HEMOGLOBIN 29.8 pg (27.0-31.0); MEAN CORPUSCULAR HGB CONC 33.3 g/dL (32.0-36.0); MEAN CORPUSCULAR VOLUME 89.6 fL (81.0-99.0); MEAN PLATELET VOLUME 10.1 fL (7.9-10.8); MONOCYTES # (AUTO) 0.6 10^3/uL (0.0-1.0); MONOCYTES % (AUTO) 5.9 %; NEUTROPHILS # (AUTO) 7.8 10^3/uL (1.5-6.6); NEUTROPHILS % (AUTO) 76.2 %; PLT - PLATELET COUNT 212 10^3/uL (130-450); RED BLOOD COUNT 4.73 10^6/uL (4.20-5.40); RED CELL DISTRIBUTION WIDTH 12.5 % (12.0-15.0); WHITE BLOOD COUNT 10.2 x10^3/uL (4.8-10.8)
--- NOTE | 2023-02-24 15:47 | CT Report ---
PROCEDURE: HEAD WO INDICATIONS: pain after glf TECHNIQUE: Noncontrast 4.5 mm thick angled axial sections acquired from the foramen magnum to the vertex. For r adiation dose reduction, the following was used: automated exposure control, adjustment of mA and/or kV according to patient size. COMPARISON: CT head 01/31/2022 FINDINGS: Image quality: Excellent. CSF spaces: Basal cisterns are patent. No extra-axial fluid collections. Ventricles are symmetric in size and shape. Brain: No midline shift. No acute intracranial hemorrhage or mass effect. There is cerebral volume l oss for age, with resultant ventricular and sulcal prominence. There are periventricular and deep whi te matter chronic small vessel ischemic changes. There is intracranial internal carotid artery athero sclerosis. Skull and face: Calvarium and visualized facial bones are intact, without suspicious lesions. Sinuses: Visualized sinuses and mastoids are clear. IMPRESSION: No acute intracranial abnormality. Reviewed by: Israel Boone MD on 02/24/2023 3:45 PM PDT Approved by: Israel Boone MD on 02/24/2023 3:45 PM PDT Station ID: [id number]
--- NOTE | 2023-02-24 15:49 | CT Report ---
PROCEDURE: CERVICAL SPINE WO INDICATIONS: pain after fall TECHNIQUE: Noncontrast 3 mm thick sections acquired from the skull base to the T4 level. Sagittal and coronal r eformats were then constructed. For radiation dose reduction, the following was used: automated exp osure control, adjustment of mA and/or kV according to patient size. COMPARISON: None. FINDINGS: Image quality: Excellent. Bones: No fractures or dislocations. Visualized superior ribs are intact. Multilevel disc space na rrowing and degenerative endplate changes. There is multilevel uncovertebral joint and facet hypertro phy. Soft tissues: Prevertebral soft tissues are normal in thickness. No paravertebral hematomas. No ap ical pneumothoraces. Bilateral carotid bifurcation atherosclerotic calcifications are noted. Mild maryuri pical scarring. IMPRESSION: No acute cervical spine fracture or subluxation. Reviewed by: Israel Boone MD on 02/24/2023 3:47 PM PDT Approved by: Israel Boone MD on 02/24/2023 3:47 PM PDT Station ID: [id number]
[2023-02-24 16:05] LABS: ALBUMIN 3.9 g/dL (3.2-5.5); ALBUMIN/GLOBULIN RATIO 1.1 (1.0-2.2); BILIRUBIN,TOTAL 0.8 mg/dL (0.2-1.0); CALCIUM 9.1 mg/dL (8.5-10.3); POTASSIUM 3.8 mmol/L (3.5-5.0); TOTAL PROTEIN 7.5 g/dL (6.7-8.2)
--- NOTE | 2023-02-24 16:15 | XRAY Report ---
PROCEDURE: Chest 2 View X-Ray INDICATIONS: glf TECHNIQUE: 2 views of the chest were acquired. COMPARISON: None. FINDINGS: Surgical changes and devices: Pacemaker. Lungs and pleura: No pleural effusions or pneumothorax. Lungs are clear. Mediastinum: Mediastinal contours appear normal. Heart size is mildly prominent. Bones and chest wa ll: No suspicious bony lesions. Overlying soft tissues appear unremarkable. IMPRESSION: No acute cardiopulmonary process. Reviewed by: Roselyn Wade MD on 02/24/2023 4:14 PM PDT Approved by: Roselyn Wade MD on 02/24/2023 4:14 PM PDT Station ID: [id number]
[2023-02-24 16:31] VITALS: BP 115/66
== END 2023-02-24 16:29 | disposition home or self-care (01) ==
LOC: ED 14:28
DX: R51.9 Headache, unspecified (principal); W18.2XXA Fall in (into) shower or empty bathtub, initial encounter; I10 Essential (primary) hypertension; E78.00 Pure hypercholesterolemia, unspecified; Z95.0 Presence of cardiac pacemaker; Z79.899 Other long term (current) drug therapy
CPT/HCPCS: 36415; 80053; 83690; 84484; 85025; 93005; 99283; 99284